=== PATIENT | male | born 1960 | race Hispanic/Latino ===

== ENCOUNTER 2019-09-05 02:38 | Observation (INO) | payer OTHER, SELFPAY ==
[2019-09-05 03:29] LABS: #Eosinphils 0.2 thou/uL (0.0-0.7); #Lymphocytes 3.6 thou/uL (1.20-3.40); #Monocytes 0.4 thou/uL (0.11-0.59); #Neutrophils 5.3 thou/uL (1.40-6.50); %Basophils 0.5 % (0.0-1.0); %Eosinophils 1.6 % (0.0-10.0); %Lymphocytes 37.9 % (21.0-51.0); %Monocytes 4.7 % (0.0-10.0); %Neutrophils 55.3 % (42.0-75.0); Hemoglobin 15.4 g/dL (14.0-18.0); Mean Corpuscular HGB CONC 33.4 g/dL (32.0-36.0); Mean Corpuscular Hemoglobin 30.3 pg (27.0-31.0); Mean Corpuscular Volume 90.8 fL (78.0-98.0); Platelet Count 348 thou/uL (130-400); RBC Distribution Width 13.4 % (11.5-14.5); Red Blood Cell (RBC) Count 5.09 mill/uL (4.70-6.10); White Blood Cell (WBC) Count 9.5 thou/uL (4.8-10.8)
[2019-09-05 03:54] LABS: ALT (SGPT) 23 U/L (8-55); AST (SGOT) 22 U/L (5-34); Alkaline Phosphatase 118 U/L (40-110); Anion Gap 15 mmol/L (10-20); BUN (Urea Nitrogen) 10 mg/dL (8.4-25.7); Bilirubin, Total 0.2 mg/dL (0.2-1.2); Calc. Creatinine Clearance 0 mL/min (70-130); Calcium 8.6 mg/dL (7.8-10.44); Carbon Dioxide 19 mmol/L (23-31); Chloride 110 mmol/L (98-107); Estimated GFR-MDRD Greater than 90; Globulin 2.9 g/dL (2.4-3.5); Glucose 109 mg/dL (80-115); Potassium 3.8 mmol/L (3.5-5.1); Protein, Total 6.9 g/dL (5.8-8.1); Sodium 140 mmol/L (136-145)
[2019-09-05 03:55] LABS: Acetaminophen Less than 6.0 mcg/mL (10.0-30.0); Alcohol 206 mg/dL (Less than 10); CK (CPK) 66 U/L (30-200); Magnesium 2.5 mg/dL (1.6-2.6); Salicylate Less than 8.0 mg/dL (15.0-30.0)
--- NOTE | 2019-09-05 05:01 | PDOC.HHP ---
Hospitalist HPI - History of Present Illness Chest discomfort History of Present Illness: Patient with PMH of tobacco abuse, medication non compliance and CAD s/p CABG and very poor historian presents to the ED for evaluation of generalized sense of malaise. Tells me that symptoms started around midnight. He is unable to describe feeling but states he was feeling "funny and tired." When asked about describing "funny" he tells me that he was feeling lightheaded and had the feeling that something was "wrong." Does admit to having had about 8 beers during the evening. Refers similar feeling prior his CABG. Denies any chest pain/discomfort, shortness of breath, palpitations. Denies recent sick contacts or recent illness. Admits to being non compliant with his medications. Initial ED evaluation reveals negative troponin. Elevated alcohol level of > 200. VS are stable. Hospitalist ROS - Review of Systems Constitutional: reports: weakness. denies: fever, chills, sweats Eyes: denies: pain, vision change, conjunctivae inflammation ENT: denies: ear pain, ear discharge, nose pain, mouth swelling, throat pain Respiratory: denies: cough, dry, shortness of breath, SOB with excertion, pleuritic pain, sputum Cardiovascular: reports: light headedness. denies: chest pain, palpitations, orthopnea, paroxysmal noc. dyspnea Gastrointestinal: denies: nausea, vomiting, abdominal pain, diarrhea Musculoskeletal: denies: neck pain, shoulder pain, arm pain, back pain, hand pain Skin: denies: rash, lesions Neurological: reports: weakness. denies: numbness, incoordination, change in speech - Exam General Appearance: NAD, awake alert Eye: PERRL ENT: normocephalic atraumatic, no oropharyngeal lesions Neck: supple, symmetric, no JVD Heart: RRR, no murmur, no gallops, no rubs, normal peripheral pulses Respiratory: CTAB, no wheezes, no rales, no ronchi Gastrointestinal: soft, non-tender, non-distended Extremities: no cyanosis, no clubbing Skin: normal turgor Neurological: cranial nerve grossly intact Musculoskeletal: normal tone, normal strength, no muscle wasting Psychiatric: normal affect Hospitalist Results - Labs Result Diagrams: 09/05/19 03:21 09/05/19 03:21 Lab results: WBC 9.5 thou/uL (4.8-10.8) 09/05/19 03:21 Hgb 15.4 g/dL (14.0-18.0) 09/05/19 03:21 Hct 46.3 % (42.0-52.0) 09/05/19 03:21 MCV 90.8 fL (78.0-98.0) 09/05/19 03:21 Plt Count 348 thou/uL (130-400) 09/05/19 03:21 Neutrophils % 55.3 % (42.0-75.0) 09/05/19 03:21 Sodium 140 mmol/L (136-145) 09/05/19 03:21 Potassium 3.8 mmol/L (3.5-5.1) 09/05/19 03:21 Chloride 110 mmol/L (98-107) H 09/05/19 03:21 Carbon Dioxide 19 mmol/L (23-31) L 09/05/19 03:21 BUN 10 mg/dL (8.4-25.7) 09/05/19 03:21 Creatinine 0.78 mg/dL (0.7-1.3) 09/05/19 03:21 Glucose 109 mg/dL (80-115) 09/05/19 03:21 Calcium 8.6 mg/dL (7.8-10.44) 09/05/19 03:21 Total Bilirubin 0.2 mg/dL (0.2-1.2) 09/05/19 03:21 AST 22 U/L (5-34) 09/05/19 03:21 ALT 23 U/L (8-55) 09/05/19 03:21 Alkaline Phosphatase 118 U/L (40-110) H 09/05/19 03:21 Creatine Kinase 66 U/L (30-200) 09/05/19 03:21 Troponin I 0.010 ng/mL (< 0.028) 09/05/19 03:21 Serum Total Protein 6.9 g/dL (5.8-8.1) 09/05/19 03:21 Albumin 4.0 g/dL (3.4-4.8) 09/05/19 03:21 Hospitalist H&P A/P - Plan Plan: Problem List 1. ACS rule out 2. History of CAD 3. Alcohol intoxication 4. Tobacco abuse 5. Medication non compliance Assessment and Plan 1. ACS rule out - admit for observation - currently tells me his symptoms have improved - denies any chest pain/discomfort but very vague - initial troponin is negative, non specific EKG changes - will check 2nd troponin and decide if stress test appropiate - pending progression and above workup will consider cardiology consult 2. History of CAD - s/p CABG - refers non compliance with medications 3. Alcohol intoxication - could be contributing to referred symptoms - tells me he drinks once weekly - monitor for evidence of withdrawal 4. Tobacco abuse - smokes about 1/2PPD - start nicontine patch - extensivelly counseled 5. Medication non compliance - extensively counseled - awaiting med rec DVT PPX: Lovenox FULL CODE
[2019-09-05] MEDS ORDERED: Acetaminophen 325 MG TAB PO PRN (05:14)
[2019-09-05] MEDS ORDERED: Ondansetron PF 4 MG/2 ML Vial IVP PRN (05:14)
[2019-09-05] MEDS ORDERED: Nicotine 14 MG PATCH TD SCH (06:00)
[2019-09-05 06:48] LABS: Cardiac Risk 3.9 (Less than 4.5); Magnesium 2.4 mg/dL (1.6-2.6)
[2019-09-05] MEDS ORDERED: Nicotine 14 MG PATCH ONE (06:48)
[2019-09-05 06:54] LABS: Troponin I 0.018 ng/mL (< 0.028)
--- NOTE | 2019-09-05 07:43 | RAD ---
EXAM: Single view of the chest HISTORY: Chest pain COMPARISON: 09/08/2014 FINDINGS: Single view of the chest shows a normal sized cardiomediastinal silhouette. The patient is status post sternotomy. There is no evidence of consolidation, mass, or pleural effusion. The bones are unremarkable. IMPRESSION: No evidence of acute cardiopulmonary disease
[2019-09-05 08:23] LABS: Amphetamine Not Detected (NotDetected); Barbiturates Screen Not Detected (NotDetected); Benzodiazepine Screen Not Detected (NotDetected); Cocaine Metabolite Screen Not Detected (NotDetected); Medtox Control Line Valid? VALID (VALID); Medtox Reader # READER 1; Methadone Not Detected (NotDetected); Methamphetamine Not Detected (NotDetected); Opiate Screen Not Detected (NotDetected); Oxycodone Screen Not Detected (NotDetected); Phencyclidine (PCP) Not Detected (NotDetected); THC/Cannabinoid Screen Not Detected (NotDetected); Tricyclic Screen Not Detected (NotDetected)
[2019-09-05] MEDS ORDERED: Enoxaparin Sodium 40 MG/0.4 ML SYRINGE ONE (08:28)
[2019-09-05] MEDS ORDERED: Thiamine 100 MG TAB ONE (08:28)
[2019-09-05] MEDS ORDERED: Folic Acid 1 MG TAB ONE (08:28)
[2019-09-05] MEDS ORDERED: Clopidogrel Bisulfate 75 MG TAB ONE (08:28)
[2019-09-05] MEDS ORDERED: Aspirin Chewable 81 MG TAB ONE (08:28)
[2019-09-05] MEDS ORDERED: Metoprolol Tartrate 25 MG TAB ONE (08:28)
[2019-09-05] MEDS ORDERED: Folic Acid 1 MG TAB PO SCH (09:00)
[2019-09-05] MEDS ORDERED: Clopidogrel Bisulfate 75 MG TAB PO SCH (09:00)
[2019-09-05] MEDS ORDERED: Enoxaparin Sodium 40 MG/0.4 ML SYRINGE SC SCH (09:00)
[2019-09-05] MEDS ORDERED: Aspirin 81 mg Enteric Coated Tablet PO SCH (09:00)
[2019-09-05] MEDS ORDERED: Thiamine 100 MG TAB PO SCH (09:00)
[2019-09-05 10:03] LABS: Troponin I Less than 0.010 ng/mL (< 0.028)
[2019-09-05] MEDS ORDERED: Sodium Chloride 0.9% 500 ML IV SCH (12:00)
[2019-09-05] MEDS ORDERED: Metoprolol Tartrate 25 MG TAB PO SCH (21:00)
--- NOTE | 2019-09-08 11:02 | EKG ---
Test Reason : Blood Pressure : / mmHG Vent. Rate : 074 BPM Atrial Rate : 074 BPM P-R Int : 176 ms QRS Dur : 116 ms QT Int : 388 ms P-R-T Axes : 048 -35 -40 degrees QTc Int : 430 ms Normal sinus rhythm with sinus arrhythmia Left axis deviation Inferior infarct , age undetermined Abnormal ECG Confirmed by DARION KLEIN DO ([id number]), city editor AMY HOWARD ([id number]) on 09/08/2019 11:02:01 AM Referred By: Confirmed By:DARION KLEIN DO
== END 2019-09-05 12:24 | disposition home or self-care (01) ==
LOC: ERS 02:38 → ERHOLD 05:14
PROVIDERS: ADMIT Internal Medicine; ATTEND Internal Medicine
DX: R53.81 Other malaise (principal); I25.10 Atherosclerotic heart disease of native coronary artery without angina pectoris; F10.129 Alcohol abuse with intoxication, unspecified; F17.210 Nicotine dependence, cigarettes, uncomplicated; I25.2 Old myocardial infarction; Z91.14 Patient's other noncompliance with medication regimen; Z79.02 Long term (current) use of antithrombotics/antiplatelets; Z79.82 Long term (current) use of aspirin; Z79.899 Other long term (current) drug therapy; Z95.1 Presence of aortocoronary bypass graft; Y90.7 Blood alcohol level of 200-239 mg/100 ml
CPT/HCPCS: 36415; 71045; 80053; 80061; 80306; 80307; 82550; 83735; 84443; 84484; 85025; 93005; G0378; J1650

== ENCOUNTER 2019-10-06 08:30 | Emergency (ER) | payer OTHER ==
[2019-10-06 09:27] LABS: #Basophils 0.1 thou/uL (0.0-0.2); #Eosinphils 0.2 thou/uL (0.0-0.7); #Lymphocytes 1.9 thou/uL (1.20-3.40); #Monocytes 0.4 thou/uL (0.11-0.59); #Neutrophils 6.3 thou/uL (1.40-6.50); %Basophils 0.6 % (0.0-1.0); %Eosinophils 1.7 % (0.0-10.0); %Lymphocytes 21.7 % (21.0-51.0); %Monocytes 4.3 % (0.0-10.0); %Neutrophils 71.6 % (42.0-75.0); Hemoglobin 16.2 g/dL (14.0-18.0); Mean Corpuscular HGB CONC 32.4 g/dL (32.0-36.0); Mean Corpuscular Hemoglobin 30.2 pg (27.0-31.0); Mean Corpuscular Volume 93.3 fL (78.0-98.0); Mean Platelet Volume 6.8 fL (7.4-10.4); Platelet Count 355 thou/uL (130-400); RBC Distribution Width 13.6 % (11.5-14.5); Red Blood Cell (RBC) Count 5.37 mill/uL (4.70-6.10); White Blood Cell (WBC) Count 8.7 thou/uL (4.8-10.8)
[2019-10-06 09:52] LABS: ALT (SGPT) 13 U/L (8-55); AST (SGOT) 15 U/L (5-34); Albumin 4.1 g/dL (3.4-4.8); Alkaline Phosphatase 116 U/L (40-110); Anion Gap 11 mmol/L (10-20); BUN (Urea Nitrogen) 12 mg/dL (8.4-25.7); Bilirubin, Total 0.6 mg/dL (0.2-1.2); Calc. Creatinine Clearance 0 mL/min (70-130); Calcium 9.3 mg/dL (7.8-10.44); Carbon Dioxide 28 mmol/L (23-31); Chloride 103 mmol/L (98-107); Estimated GFR-MDRD Greater than 90; Globulin 2.8 g/dL (2.4-3.5); Glucose 99 mg/dL (80-115); Potassium 4.4 mmol/L (3.5-5.1); Protein, Total 6.9 g/dL (5.8-8.1); Sodium 138 mmol/L (136-145)
[2019-10-06] MEDS ORDERED: Aspirin Chewable 81 MG TAB ONE (10:33)
== END 2019-10-06 11:18 | disposition home or self-care (01) ==
LOC: ERS 08:30
DX: R42 Dizziness and giddiness (principal); I25.2 Old myocardial infarction; F41.9 Anxiety disorder, unspecified; F17.210 Nicotine dependence, cigarettes, uncomplicated
CPT/HCPCS: 36415; 80053; 84484; 85025; 93005

== ENCOUNTER 2020-07-11 00:11 | Observation (INO) | payer OTHER ==
[2020-07-11] MEDS ORDERED: Aspirin Chewable 81 MG TAB ONE (00:56)
[2020-07-11 01:18] LABS: #Basophils 0.1 thou/uL (0.0-0.2); #Eosinphils 0.1 thou/uL (0.0-0.7); #Lymphocytes 3.6 thou/uL (1.20-3.40); #Monocytes 0.6 thou/uL (0.11-0.59); #Neutrophils 7.1 thou/uL (1.40-6.50); %Basophils 0.7 % (0.0-1.0); %Monocytes 5.4 % (0.0-10.0); %Neutrophils 61.8 % (42.0-75.0); Mean Corpuscular HGB CONC 33.6 g/dL (32.0-36.0); Mean Corpuscular Hemoglobin 30.8 pg (27.0-31.0); Mean Corpuscular Volume 91.5 fL (78.0-98.0); Mean Platelet Volume 6.8 fL (7.4-10.4); Platelet Count 296 thou/uL (130-400); RBC Distribution Width 13.5 % (11.5-14.5); Red Blood Cell (RBC) Count 5.18 mill/uL (4.70-6.10); White Blood Cell (WBC) Count 11.5 thou/uL (4.8-10.8)
[2020-07-11 01:36] LABS: ALT (SGPT) 12 U/L (8-55); AST (SGOT) 15 U/L (5-34); Albumin 3.9 g/dL (3.4-4.8); Alkaline Phosphatase 115 U/L (40-110); Anion Gap 17 mmol/L (10-20); BUN (Urea Nitrogen) 9 mg/dL (8.4-25.7); Bilirubin, Total 0.2 mg/dL (0.2-1.2); Calc. Creatinine Clearance 0 mL/min (70-130); Calcium 8.8 mg/dL (7.8-10.44); Carbon Dioxide 20 mmol/L (23-31); Chloride 104 mmol/L (98-107); Globulin 2.7 g/dL (2.4-3.5); Glucose 107 mg/dL (80-115); Lipase 41 U/L (8-78); Potassium 3.7 mmol/L (3.5-5.1); Protein, Total 6.6 g/dL (5.8-8.1); Sodium 137 mmol/L (136-145)
[2020-07-11] MEDS ORDERED: Nitroglycerin 0.4 MG TAB (25 Tab Bottle) SL PRN (03:42)
[2020-07-11] MEDS ORDERED: Acetaminophen 650 MG Suppository PR PRN (03:48)
[2020-07-11] MEDS ORDERED: Acetaminophen 325 MG TAB PO PRN (03:48)
[2020-07-11] MEDS ORDERED: Ondansetron PF 4 MG/2 ML Vial IVP PRN (03:48)
[2020-07-11] MEDS ORDERED: Ondansetron ODT 4 MG TAB PO PRN (03:48)
[2020-07-11 04:38] LABS: Acetaminophen Less than 6.0 mcg/mL (10.0-30.0); Alcohol 272 mg/dL (Less than 10); Salicylate Less than 8.0 mg/dL (15.0-30.0)
[2020-07-11 05:30] LABS: Troponin I 0.013 ng/mL (< 0.028)
[2020-07-11 05:37] LABS: Cardiac Risk 5.5 (Less than 4.5); Magnesium 2.4 mg/dL (1.6-2.6)
[2020-07-11] MEDS ORDERED: Thiamine HCl 200 MG/2 ML VIAL IM SCH (06:00)
[2020-07-11] MEDS ORDERED: Multivitamins, Adult 10 ML, Folic Acid 1 MG in Dextrose 5 %-0.45 % NaCl 1,000 ML IV SCH (06:00)
[2020-07-11 06:24] VITALS: BMI 22.8
[2020-07-11 08:36] LABS: Troponin I Less than 0.010 ng/mL (< 0.028)
[2020-07-11] MEDS ORDERED: Metoprolol Tartrate 25 MG TAB PO SCH ×2 (09:00→21:00)
[2020-07-11] MEDS ORDERED: Thiamine 100 MG TAB PO SCH (09:00)
[2020-07-11] MEDS ORDERED: Famotidine 20 MG TAB PO SCH (09:00)
[2020-07-11] MEDS ORDERED: Clopidogrel Bisulfate 75 MG TAB PO SCH (09:00)
[2020-07-11] MEDS ORDERED: Aspirin Chewable 81 MG TAB PO SCH (09:00)
[2020-07-11] MEDS ORDERED: Famotidine/PF 20 mg/2ml Vial SLOW IVP SCH (09:00)
[2020-07-11] MEDS ORDERED: Folic Acid 1 MG TAB PO SCH (09:00)
[2020-07-11] MEDS: Thiamine HCl 200 MG/2 ML VIAL IM SCH ×2 (10:14→13:21)
[2020-07-11 12:02] VITALS: TEMP 98
[2020-07-11 13:44] LABS: Bacteria/HPF None Seen HPF (None Seen); Bilirubin Negative (Negative); Blood, Urine Negative (Negative); Clarity Clear (Clear); Glucose, Urine (Dipstick) Normal (Negative); Ketone, Urine Negative (Negative); Leukocyte Negative Leu/uL (Negative); Nitrite Negative (Negative); Protein, Urine (Dipstick) Negative (Neg-Trace); RBC/HPF 0-3 HPF (0-3); Specific Gravity, Urine 1.011 (1.002-1.036); Squamous Epithelial 0-3 HPF (0-3); Urobilinogen Normal mg/dL (Less than 2); WBC/HPF 0-3 HPF (0-3)
[2020-07-11 13:57] LABS: Amphetamine Not Detected (NotDetected); Barbiturates Screen Not Detected (NotDetected); Benzodiazepine Screen Not Detected (NotDetected); Cocaine Metabolite Screen Not Detected (NotDetected); Medtox Control Line Valid? VALID (VALID); Medtox Reader # READER 4; Methadone Not Detected (NotDetected); Methamphetamine Not Detected (NotDetected); Opiate Screen Not Detected (NotDetected); Oxycodone Screen Not Detected (NotDetected); Phencyclidine (PCP) Not Detected (NotDetected); THC/Cannabinoid Screen Not Detected (NotDetected); Tricyclic Screen Not Detected (NotDetected)
[2020-07-11 15:46] VITALS: BP 130/76
[2020-07-11 19:18] LABS: SARS-CoV-2 PCR by NAA Not Detected (NotDetected)
[2020-07-11] MEDS ORDERED: Atorvastatin Calcium 20 MG TAB PO SCH (21:00)
== END 2020-07-11 19:44 | disposition home or self-care (01) ==
LOC: ERS 00:11 → 2SW 03:45
PROVIDERS: ADMIT Internal Medicine; ATTEND Internal Medicine
DX: F10.129 Alcohol abuse with intoxication, unspecified (principal); R55 Syncope and collapse; R07.9 Chest pain, unspecified; I07.1 Rheumatic tricuspid insufficiency; I25.10 Atherosclerotic heart disease of native coronary artery without angina pectoris; I10 Essential (primary) hypertension; I25.2 Old myocardial infarction; E78.5 Hyperlipidemia, unspecified; F17.210 Nicotine dependence, cigarettes, uncomplicated; Z95.1 Presence of aortocoronary bypass graft; Z20.822 Contact with and (suspected) exposure to COVID-19; Y90.8 Blood alcohol level of 240 mg/100 ml or more
CPT/HCPCS: 36415; 71045; 80053; 80061; 80306; 80307; 81001; 82607; 82746; 83690; 83735; 83880; 84443; 84484; 85025; 87635; 93005; 93306; 93880; 94760; 96374; 96375; G0378; J3411; J7042; S0028; U0003; U0005

== ENCOUNTER 2022-11-08 08:15 | Observation (INO) | payer OTHER ==
[2022-11-08 08:51] LABS: #Eosinphils 0.1 thou/uL (0.0-0.7); #Monocytes 0.5 thou/uL (0.11-0.59); #Neutrophils 5.9 thou/uL (1.40-6.50); %Basophils 0.4 % (0.0-1.0); %Eosinophils 1.4 % (0.0-10.0); %Lymphocytes 28.7 % (21.0-51.0); %Monocytes 5.3 % (0.0-10.0); %Neutrophils 63.8 % (42.0-75.0); Hematocrit 47.6 % (42.0-52.0); Hemoglobin 15.6 g/dL (14.0-18.0); Mean Corpuscular HGB CONC 32.8 g/dL (32.0-36.0); Mean Corpuscular Hemoglobin 29.9 pg (27.0-31.0); Mean Corpuscular Volume 91.2 fl (78.0-98.0); Mean Platelet Volume 9.5 fL (7.4-10.4); Platelet Count 316 10x3/uL (130-400); Red Blood Cell (RBC) Count 5.22 mill/uL (4.70-6.10); White Blood Cell (WBC) Count 9.2 10x3/uL (4.8-10.8)
[2022-11-08 09:28] LABS: ALT (SGPT) 15 U/L (8-55); AST (SGOT) 13 U/L (5-34); Albumin 4.1 g/dL (3.4-4.8); Alkaline Phosphatase 123 U/L (40-110); Anion Gap 7 mmol/L (10-20); BUN (Urea Nitrogen) 11 mg/dL (8.4-25.7); Bilirubin, Total 0.4 mg/dL (0.2-1.2); CK (CPK) 79 U/L (30-200); Calc. Creatinine Clearance 0 mL/min (70-130); Calcium 9.3 mg/dL (7.8-10.44); Carbon Dioxide 22 mmol/L (23-31); Chloride 111 mmol/L (98-107); Estimated GFR 97; Globulin 2.3 g/dL (2.4-3.5); Glucose 104 mg/dL (80-115); Potassium 4.3 mmol/L (3.5-5.1); Protein, Total 6.4 g/dL (5.8-8.1); Sodium 136 mmol/L (136-145)
[2022-11-08 09:32] LABS: Troponin I Less than 0.010 ng/mL (< 0.028)
[2022-11-08] MEDS ORDERED: Ondansetron ODT 4 MG TAB PO PRN (11:20)
[2022-11-08] MEDS ORDERED: Ondansetron PF 4 MG/2 ML Vial IVP PRN (11:20)
[2022-11-08] MEDS ORDERED: Acetaminophen 325 MG TAB PO PRN (11:20)
[2022-11-08] MEDS ORDERED: Nitroglycerin 0.4 MG TAB (25 Tab Bottle) SL PRN (11:21)
[2022-11-08] MEDS ORDERED: Electrolyte Replacement Protocol FS PRN (11:30)
[2022-11-08] MEDS ORDERED: Electrolyte Replacement Protocol 1 EACH FS SCH ×2 (11:30→12:45)
[2022-11-08] MEDS ORDERED: Lorazepam 1 MG TAB PO PRN (12:37)
[2022-11-08] MEDS ORDERED: Lorazepam 1 MG TAB PO SCH (12:45)
[2022-11-08] MEDS ORDERED: Folic Acid 1 MG TAB PO SCH (13:45)
[2022-11-08] MEDS ORDERED: Multivit, Therapeutic 1 TAB PO SCH (13:45)
[2022-11-08] MEDS ORDERED: Thiamine 100 MG TAB PO SCH (14:00)
[2022-11-08 14:15] LABS: Troponin I Less than 0.010 ng/mL (< 0.028)
[2022-11-08 14:17] LABS: Alcohol Less than 10.0 mg/dL (Less than 10); Magnesium 2.2 mg/dL (1.6-2.6)
[2022-11-08 14:23] VITALS: BMI 24.1
[2022-11-08 17:25] LABS: Troponin I Less than 0.010 ng/mL (< 0.028)
[2022-11-08] MEDS: Metoprolol Tartrate 25 MG TAB PO SCH (20:30)
[2022-11-08] MEDS ORDERED: Atorvastatin Calcium 40 MG TAB PO SCH (21:00)
[2022-11-08 21:26] LABS: Amphetamine Not Detected (NotDetected); Barbiturates Screen Not Detected (NotDetected); Benzodiazepine Screen Not Detected (NotDetected); Cocaine Metabolite Screen Not Detected (NotDetected); Methadone Not Detected (NotDetected); Methamphetamine Not Detected (NotDetected); Opiate Screen Not Detected (NotDetected); Oxycodone Screen Not Detected (NotDetected); Phencyclidine (PCP) Not Detected (NotDetected); THC/Cannabinoid Screen Not Detected (NotDetected); Tricyclic Screen Not Detected (NotDetected)
[2022-11-08 21:56] LABS: SARS-CoV-2 NAA Rapid Test Not Detected (NotDetected)
[2022-11-09 04:45] LABS: #Eosinphils 0.2 thou/uL (0.0-0.7); #Monocytes 0.5 thou/uL (0.11-0.59); #Neutrophils 5.5 thou/uL (1.40-6.50); %Basophils 0.3 % (0.0-1.0); %Eosinophils 1.8 % (0.0-10.0); %Monocytes 5.5 % (0.0-10.0); %Neutrophils 59.9 % (42.0-75.0); Hematocrit 47.8 % (42.0-52.0); Hemoglobin 15.5 g/dL (14.0-18.0); Mean Corpuscular HGB CONC 32.4 g/dL (32.0-36.0); Mean Corpuscular Hemoglobin 29.6 pg (27.0-31.0); Mean Corpuscular Volume 91.2 fl (78.0-98.0); Mean Platelet Volume 9.7 fL (7.4-10.4); Platelet Count 308 10x3/uL (130-400); Red Blood Cell (RBC) Count 5.24 mill/uL (4.70-6.10); White Blood Cell (WBC) Count 9.2 10x3/uL (4.8-10.8)
[2022-11-09 05:00] LABS: Hemoglobin A1c 5.8 % (4.0-6.0)
[2022-11-09 05:20] LABS: ALT (SGPT) 14 U/L (8-55); AST (SGOT) 12 U/L (5-34); Albumin 3.6 g/dL (3.4-4.8); Alkaline Phosphatase 113 U/L (40-110); Anion Gap 10 mmol/L (10-20); BUN (Urea Nitrogen) 12 mg/dL (8.4-25.7); Bilirubin, Total 0.2 mg/dL (0.2-1.2); Calc. Creatinine Clearance 83 mL/min (70-130); Calcium 8.9 mg/dL (7.8-10.44); Carbon Dioxide 24 mmol/L (23-31); Cardiac Risk 7.2 (Less than 4.5); Chloride 107 mmol/L (98-107); Cholesterol 217 mg/dl (< 200 Desired); Estimated GFR 96; Globulin 2.5 g/dL (2.4-3.5); Glucose 115 mg/dL (80-115); HDL Cholesterol 30 mg/dL (>60 Neg Risk); LDL Cholesterol, Calculated 159 mg/dL; Potassium 4.1 mmol/L (3.5-5.1); Protein, Total 6.1 g/dL (5.8-8.1); Sodium 137 mmol/L (136-145); Triglycerides 138 mg/dL (Less than 150)
[2022-11-09] MEDS ORDERED: Multivit, Therapeutic 1 TAB PO SCH (09:00)
[2022-11-09] MEDS ORDERED: Folic Acid 1 MG TAB PO SCH (09:00)
[2022-11-09] MEDS ORDERED: Aspirin 81 mg Enteric Coated Tablet PO SCH (09:00)
[2022-11-09 11:45] VITALS: BP 155/73; TEMP 97.8
[2022-11-09] MEDS: Metoprolol Tartrate 25 MG TAB PO SCH (12:14)
[2022-11-09] MEDS ORDERED: Lorazepam 1 MG TAB PO PRN (12:37)
[2022-11-10] MEDS ORDERED: Lorazepam 1 MG TAB PO PRN (12:37)
[2022-11-10] MEDS ORDERED: Lorazepam 0.5 MG TAB PO SCH (12:45)
[2022-11-11] MEDS ORDERED: Lorazepam 0.5 MG TAB PO PRN (12:37)
== END 2022-11-09 12:12 | disposition left against medical advice (07) ==
LOC: ERS 08:15 → ERHOLD 11:19 → 2NO 13:54
PROVIDERS: ADMIT Family Medicine; ATTEND Internal Medicine
DX: R07.9 Chest pain, unspecified (principal); R55 Syncope and collapse; I25.10 Atherosclerotic heart disease of native coronary artery without angina pectoris; I10 Essential (primary) hypertension; E78.5 Hyperlipidemia, unspecified; I25.2 Old myocardial infarction; F41.9 Anxiety disorder, unspecified; F10.90 Alcohol use, unspecified, uncomplicated; F17.210 Nicotine dependence, cigarettes, uncomplicated; Z79.82 Long term (current) use of aspirin; Z79.899 Other long term (current) drug therapy; Z95.1 Presence of aortocoronary bypass graft
CPT/HCPCS: 36415; 36416; 71045; 80053; 80061; 80306; 80307; 82550; 83036; 83735; 83880; 84443; 84484; 85025; 85379; 93005; 93880; 94760; G0378; U0002

== ENCOUNTER 2024-11-15 13:09 | Observation (INO) | payer MEDICARE, MEDICAID ==
[2024-11-15] MEDS ORDERED: Iopamidol-370 76% 500 ML MDV (1 ML CHARGE) ONE ×2 (13:11→13:28)
[2024-11-15] MEDS ORDERED: Proparacaine 0.5% Opth 15 ML BOT ONE (13:25)
[2024-11-15] MEDS ORDERED: Fluorescein Opthalmic Strip ONE (13:54)
[2024-11-15] MEDS ORDERED: diphenhydrAMINE 50 MG/ML VIAL ONE (14:01)
[2024-11-15] MEDS ORDERED: Ketorolac Tromethamine 30 MG (1 mL) VIAL ONE (14:01)
[2024-11-15] MEDS ORDERED: Metoclopramide HCl 10 MG (2 mL) VIAL ONE (14:02)
[2024-11-15 15:54] LABS: #Basophils 0.03 10x3/uL (0.0-0.2); #Eosinophils 0.06 10x3/uL (0.0-0.7); #Monocytes 0.40 10x3/uL (0.11-0.59); #Neutrophils 7.61 10x3/uL (1.40-6.50); %Basophils 0.3 % (0.0-1.0); %Eosinophils 0.6 % (0.0-10.0); %Lymphocytes 16.9 % (21.0-51.0); %Monocytes 4.1 % (0.0-10.0); %Neutrophils 77.8 % (42.0-75.0); Hematocrit 44.3 % (42.0-52.0); Hemoglobin 14.4 g/dL (14.0-18.0); Mean Corpuscular Hemoglobin 28.3 pg (27.0-31.0); Mean Corpuscular Volume 87.2 fL (78.0-98.0); Platelet Count 302 10x3/uL (130-400); Red Blood Cell (RBC) Count 5.08 mill/uL (4.70-6.10); White Blood Cell (WBC) Count 9.78 10x3/uL (4.8-10.8)
[2024-11-15 16:20] LABS: ALT (SGPT) 20 U/L (Less than 45); AST (SGOT) 17 U/L (11-34); Albumin 3.4 g/dL (3.1-4.5); Alkaline Phosphatase 112 U/L (40-110); Anion Gap 11 mmol/L (10-20); BUN (Urea Nitrogen) 10 mg/dL (8.4-25.7); Bilirubin, Total 0.5 mg/dL (0.3-1.2); Calc. Creatinine Clearance 0 mL/min (70-130); Calcium 8.3 mg/dL (7.8-10.44); Carbon Dioxide 22 mmol/L (23-31); Chloride 109 mmol/L (98-107); Globulin 2.4 g/dL (2.4-3.5); Glucose 102 mg/dL (80-115); Potassium 4.4 mmol/L (3.5-5.1); Sodium 138 mmol/L (136-145)
[2024-11-15] MEDS ORDERED: Acetaminophen/Codeine 30-300mg Tablet PO PRN (21:23)
[2024-11-15] MEDS ORDERED: Melatonin 3 MG TAB PO PRN (21:23)
[2024-11-15] MEDS ORDERED: Calcium Carbonate 500 MG ChewTAB PO PRN (21:23)
[2024-11-15] MEDS ORDERED: Senokot S 8.6-50 MG TAB PO PRN (21:23)
[2024-11-15] MEDS ORDERED: Acetaminophen 325 MG TAB PO PRN (21:23)
[2024-11-15] MEDS ORDERED: Ondansetron PF 4 MG/2 ML Vial IVP PRN (21:23)
[2024-11-15 23:01] VITALS: BMI 23.7
[2024-11-15] MEDS: methylPREDNISolone Sod Succ 1 GM in Sodium Chloride 0.9% 250 ML 250 ML IVPB SCH (23:20)
[2024-11-16 04:23] LABS: #Basophils 0.03 10x3/uL (0.0-0.2); #Eosinophils Less than 0.03 10x3/uL (0.0-0.7); #Monocytes 0.06 10x3/uL (0.11-0.59); #Neutrophils 7.61 10x3/uL (1.40-6.50); %Basophils 0.3 % (0.0-1.0); %Eosinophils 0.1 % (0.0-10.0); %Lymphocytes 11.6 % (21.0-51.0); %Monocytes 0.7 % (0.0-10.0); %Neutrophils 87.0 % (42.0-75.0); Hematocrit 46.6 % (42.0-52.0); Hemoglobin 15.3 g/dL (14.0-18.0); Mean Corpuscular Hemoglobin 28.4 pg (27.0-31.0); Mean Corpuscular Volume 86.6 fL (78.0-98.0); Platelet Count 321 10x3/uL (130-400); Red Blood Cell (RBC) Count 5.38 mill/uL (4.70-6.10); White Blood Cell (WBC) Count 8.76 10x3/uL (4.8-10.8)
[2024-11-16 04:57] LABS: Anion Gap 15 mmol/L (10-20); BUN (Urea Nitrogen) 12 mg/dL (8.4-25.7); Calc. Creatinine Clearance 104 mL/min (70-130); Calcium 8.7 mg/dL (7.8-10.44); Carbon Dioxide 18 mmol/L (23-31); Chloride 106 mmol/L (98-107); Glucose 168 mg/dL (80-115); Potassium 4.0 mmol/L (3.5-5.1); Sodium 135 mmol/L (136-145)
[2024-11-16] MEDS: Aspirin 81 mg Enteric Coated Tablet PO SCH (08:42)
[2024-11-16] MEDS: Enoxaparin 40 MG (0.4 mL) SYRINGE SC SCH (08:42)
[2024-11-17 16:12] VITALS: BP 143/68; TEMP 98
== END 2024-11-17 16:12 | disposition home or self-care (01) ==
LOC: ERS 13:09 → 2SE 21:23
PROVIDERS: ADMIT Internal Medicine; ATTEND Internal Medicine
DX: H54.7 Unspecified visual loss (principal); I10 Essential (primary) hypertension; I25.10 Atherosclerotic heart disease of native coronary artery without angina pectoris; E78.5 Hyperlipidemia, unspecified; F17.210 Nicotine dependence, cigarettes, uncomplicated; Z95.1 Presence of aortocoronary bypass graft; Z79.82 Long term (current) use of aspirin; Z79.02 Long term (current) use of antithrombotics/antiplatelets; Z79.899 Other long term (current) drug therapy
CPT/HCPCS: 70470; 70481; 80048; 80053; 85025 ×2; 86141; 96361; 96372 ×2; 96374; 96375; 99285; G0378 ×4; J1200; J1650 ×2; J1885; J2765; J2930; J7050; Q9967; 36415